=== PATIENT | male | born 1955 | race Caucasian/White ===

== ENCOUNTER 2017-11-21 04:58 | Day surgery (SDC) | payer MEDICARE, MEDICAID ==
[2017-11-19 13:23] LABS: BASOPHILS % (AUTO) 0.5 % (0-1); EOSINOPHILS # (AUTO) 0.1 X10'3 (0-0.9); EOSINOPHILS % (AUTO) 1.7 % (0-6); LYMPHOCYTES # (AUTO) 1.6 X10'3 (1.1-4.8); LYMPHOCYTES % (AUTO) 19.3 % (21-51); MEAN CORPUSCULAR HEMOGLOBIN 32.4 PG (27.0-31.0); MEAN CORPUSCULAR HGB CONC 34.2 % (33.0-36.5); MEAN CORPUSCULAR VOLUME 94.8 FL (78-98); MEAN PLATELET VOLUME 8.8 FL (7.4-10.4); MONOCYTES # (AUTO) 0.9 X10'3 (0-0.9); MONOCYTES % (AUTO) 10.7 % (2-12); NEUTROPHILS # (AUTO) 5.6 X10'3 (1.8-7.7); NEUTROPHILS % (AUTO) 67.8 % (42-75); PRE OP HEMOGLOBIN 17.1 g/dL (14.0-17.9); PRE OP PLATELET COUNT 137 X10'3 (140-440); RED BLOOD COUNT 5.27 X10'6 (4.70-6.10); RED CELL DISTRIBUTION WIDTH 13.1 % (11.5-14.5)
[2017-11-19 13:25] LABS: CLARITY,URINE SLIGHTLY CLOUDY (Clear); COLOR,URINE YELLOW (Yellow); GLUCOSE, URINE NEGATIVE (Neg); KETONES,URINE NEGATIVE (Neg); LEUKOCYTE ESTERASE ,URINE NEGATIVE (Neg); NITRITES, URINE NEGATIVE (Neg); OCCULT BLOOD,URINE NEGATIVE (Neg); PROTEIN,URINE NEGATIVE (Neg); UROBILINOGEN,URINE 0.2 E.U/dL (0.2-1.0)
[2017-11-19 13:29] LABS: UA COLLECTION TYPE CLN CATCH MIDSTREAM
[2017-11-19 13:33] LABS: AMORPHOUS PHOSPHATES 2+; BACTERIA,URINE NONE SEEN /HPF (Neg); RBC,URINE 0-2 /HPF (0-2); SQUAMOUS EPITHELIAL CELL,UR FEW /LPF (FEW); WBC,URINE 0-4 /HPF (0-4)
[2017-11-19 13:34] LABS: HEMOGLOBIN A1C 5.6 % (4.5-6.2)
[2017-11-19 13:35] LABS: PRE OP PROTIME 10.7 SECONDS (9.0-12.0)
[2017-11-19 13:39] LABS: ALBUMIN 3.9 G/DL (3.4-5.0); ALKALINE PHOSPHATASE 89 IU/L (46-116); BLOOD UREA NITROGEN 11 MG/DL (7-18); BUN/CREATININE RATIO 11.5 (5.4-32.0); CALCIUM 8.9 MG/DL (8.5-10.1); CHLORIDE 105 MMOL/L (99-107); CREATININE 0.96 MG/DL (0.60-1.10); PRE OP ALT 19 U/L (30-65); PRE OP ANION GAP 4 (8-16); PRE OP AST 12 U/L (10-37); PRE OP BILIRUB, TOTAL 0.4 MG/DL (0.0-1.0); PRE OP GLUCOSE 80 MG/DL (70-104); PRE OP POTASSIUM 4.1 MMOL/L (3.4-5.1); PRE OP SODIUM 139 MMOL/L (135-145); TOTAL CARBON DIOXIDE 30.1 MMOL/L (24-32); TOTAL PROTEIN 7.7 G/DL (6.4-8.2); eGFR 79 ML/MIN
[~2017-11-21] VITALS: Ht 180.3 cm; Wt 84.1 kg
[2017-11-21] VITALS (9 sets, daily range): BP systolic 108–125; BP diastolic 71–86
[~2017-11-21 04:58] MED LIST: ASPI-611 PO; METO25TA6 PO; ROSU20TA PO
[2017-11-21] MEDS ORDERED: ringers solution, lacted 1,000 ML IV SCH ×2 (05:00→08:01)
[2017-11-21] MEDS ORDERED: dextrose 50%-water 50ml dispensing syringe IV PRN (05:30)
[2017-11-21] MEDS ORDERED: famotidine 20mg tablet PO ONE (05:30)
[2017-11-21] MEDS ORDERED: insulin regular, human 100 UNIT in normal saline 100ml IV soln 99 ML IV SCH ×2 (05:30)
[2017-11-21] MEDS ORDERED: mupirocin 2% nasal ointment 1gm UD NS SCH (05:30)
[2017-11-21] MEDS ORDERED: Cefazolin 2GM/50ML dext iso,osmotic IVPB IV ONE (05:30)
[2017-11-21] MEDS ORDERED: DOCUMENT DATE & TIME OF BETA-BLOCKER PO ONE (05:30)
[2017-11-21] MEDS ORDERED: METO25TA6 PO (06:49)
[2017-11-21] MEDS ORDERED: epiNEPHrine 1 mg/ml inj ONE (07:01)
[2017-11-21] MEDS ORDERED: BUPIVAcaine/PF 2.5mg/ml (0.25%) 10ml vial ONE (07:01)
[2017-11-21] MEDS ORDERED: LIDOcaine 1% 30ml preserv. free vial ONE (07:02)
[2017-11-21] MEDS ORDERED: sevoflurane 250ml liquid IH ONE (07:17)
[2017-11-21] MEDS ORDERED: neostigmine methylsulfate 1 MG/ML 10ml vial ONE (07:17)
[2017-11-21] MEDS ORDERED: fentaNYL /PF 50mcg/ml 5ml ampule ONE (07:20)
[2017-11-21] MEDS ORDERED: midazolam 2 mg/2 ml injection ONE (07:20)
[2017-11-21] MEDS ORDERED: rocuronium 10mg/ml inj IV ONE (07:24)
[2017-11-21] MEDS ORDERED: LIDOcaine 2% (20mg/ml) 5ml vial ONE (07:24)
[2017-11-21] MEDS ORDERED: ondansetron/PF 4mg/2ml inj ONE (08:03)
[2017-11-21] MEDS ORDERED: dexamethasone sod phosphate 4mg/ml inj. ONE (08:03)
[2017-11-21] MEDS ORDERED: glycopyrrolate 0.2mg/ml inj ONE (08:05)
[2017-11-21] MEDS ORDERED: morphine 4 MG/ML inj SYRINge IV PRN ×2 (08:05)
[2017-11-21] MEDS ORDERED: proCHLORperazine 10 MG/2 ml inj IV PRN (08:05)
[2017-11-21] MEDS ORDERED: ondansetron/PF 4mg/2ml inj IV PRN (08:05)
[2017-11-21] MEDS ORDERED: ketorolac trometh. 30mg/ml inj. ONE (08:05)
[2017-11-21] MEDS ORDERED: meperidine/PF 25mg/ml syringe IV PRN ×3 (08:05)
[2017-11-21] MEDS ORDERED: BUPIVAcaine 2.5mg/ml inj 50ml vial (contains preservative) SQ ONE (08:20)
== END 2017-11-21 09:35 | disposition home or self-care (01) ==
LOC: PAS 04:58
PROVIDERS: ATTEND Thoracic Surgery (Cardiothoracic Vascular Surgery)
DX: T81.89XA Other complications of procedures, not elsewhere classified, initial encounter (principal); G89.18 Other acute postprocedural pain; Y83.8 Other surgical procedures as the cause of abnormal reaction of the patient, or of later complication, without mention of misadventure at the time of the procedure; I25.10 Atherosclerotic heart disease of native coronary artery without angina pectoris; E78.5 Hyperlipidemia, unspecified; H91.90 Unspecified hearing loss, unspecified ear; Z89.231 Acquired absence of right shoulder; Z89.431 Acquired absence of right foot; Z89.422 Acquired absence of other left toe(s); Z89.612 Acquired absence of left leg above knee; Z89.611 Acquired absence of right leg above knee; Z79.899 Other long term (current) drug therapy; Z79.82 Long term (current) use of aspirin; F12.90 Cannabis use, unspecified, uncomplicated; Z87.891 Personal history of nicotine dependence; Z98.890 Other specified postprocedural states; Z82.49 Family history of ischemic heart disease and other diseases of the circulatory system
CPT/HCPCS: 20680; 36415; 71046; 71250; 80053; 81001; 82948; 83036; 85025; 85610; 85730; 86885; 86900; 86901; 93005; A6255; A6257; A6449; J0690; J1100; J1885; J2001; J2250; J2405; J2710; J3010; J3490; J7030; J7120; A7000; J0171; J1815